=== PATIENT | female | born 1970 | race Caucasian/White ===

== ENCOUNTER 2022-01-05 12:35 | Observation (INO) | payer BC ==
[~2022-01-05] VITALS: Ht 160 cm; Wt 83.5 kg
[2022-01-05 13:37] LABS: HEMOGLOBIN 15.2 gm/dl (12.3-15.3); RED BLOOD COUNT 4.62 M/UL (4.00-5.10); WHITE BLOOD COUNT 8.5 K/UL (4.5-11.0)
[2022-01-05 14:02] LABS: BUN/CREATININE RATIO 20 (0-10)
[2022-01-05] MEDS ORDERED: FAMOTIDINE10 MG PO (16:34)
[2022-01-06 05:39] LABS: HEMOGLOBIN 13.8 gm/dl (12.3-15.3); RED BLOOD COUNT 4.34 M/UL (4.00-5.10); WHITE BLOOD COUNT 9.5 K/UL (4.5-11.0)
[2022-01-06 06:43] LABS: BUN/CREATININE RATIO 17 (0-10)
[2022-01-06] MEDS ORDERED: XARELTO 15 MG T15 MG PO (13:50)
[2022-01-06] MEDS ORDERED: XARELTO20 MG PO (13:50)
== END 2022-01-06 16:03 | disposition home or self-care (01) ==
LOC: ER1 12:35 → CDU 15:39 → M/S 01-06 10:33
PROVIDERS: Nurse Practitioner; Physician Assistant; ADMIT Internal Medicine Infectious Disease
DX: I82.412 Acute embolism and thrombosis of left femoral vein (principal); I82.442 Acute embolism and thrombosis of left tibial vein; R74.01 Elevation of levels of liver transaminase levels; K21.9 Gastro-esophageal reflux disease without esophagitis; I10 Essential (primary) hypertension; Z20.822 Contact with and (suspected) exposure to COVID-19; Z86.16 Personal history of COVID-19; Z86.718 Personal history of other venous thrombosis and embolism; Z88.0 Allergy status to penicillin; Z88.1 Allergy status to other antibiotic agents; Z88.5 Allergy status to narcotic agent; Z87.891 Personal history of nicotine dependence; Z79.899 Other long term (current) drug therapy
CPT/HCPCS: 0240U; 80053; 81001; 82550; 82553; 83735; 84484; 85025; 85610; 85730; 93005; 96374; 99285; G0378; J1644; Q9967

== ENCOUNTER → 2022-01-05 | Outpatient (CLI) | payer BC ==
[~2022-01-05] MED LIST: FAMOTIDINE10 MG PO; XARELTO 15 MG T15 MG PO; XARELTO20 MG PO
== END ==
LOC: US 11:00
DX: M79.662 Pain in left lower leg (principal); Z86.718 Personal history of other venous thrombosis and embolism; R22.42 Localized swelling, mass and lump, left lower limb; I10 Essential (primary) hypertension; R06.02 Shortness of breath
CPT/HCPCS: 93971

== ENCOUNTER → 2022-05-13 | Outpatient (CLI) | payer BC | LOC: EXRD 08:30 → RAD 09:13 → MAMO 09:30 | DX: Z12.31 Encounter for screening mammogram for malignant neoplasm of breast (principal); Z13.820 Encounter for screening for osteoporosis; I82.502 Chronic embolism and thrombosis of unspecified deep veins of left lower extremity; M25.572 Pain in left ankle and joints of left foot; N95.1 Menopausal and female climacteric states; M81.0 Age-related osteoporosis without current pathological fracture | CPT/HCPCS: 73610; 77063; 77067; 77080; 93971 ==